=== PATIENT | male | born 2000 | race Caucasian/White ===

== ENCOUNTER 2021-01-16 14:06 | Emergency (ER) | payer BC, OTHER ==
[~2021-01-16 14:06] MED LIST: CLEOCIN HCL300 MG PO; DELSYM30 MG/5 ML PO; FLONASE 0.05% N16 GM; NORCO 5-325 TA1 EACH PO; PENVEE K 500 M500 MG PO; ZOFRAN4 MG PO; ZYRTEC10 MG PO
== END 2021-01-16 16:10 | disposition left against medical advice (07) ==
LOC: ER1 14:06
DX: Z53.21 Procedure and treatment not carried out due to patient leaving prior to being seen by health care provider (principal)
CPT/HCPCS: 0240U; 82962; 87081; 87880

== ENCOUNTER 2022-05-25 18:15 | Emergency (ER) | payer BC, OTHER | END 2022-05-25 21:30 | disposition left against medical advice (07) | LOC: ER1 18:15 | DX: Z53.21 Procedure and treatment not carried out due to patient leaving prior to being seen by health care provider (principal) ==